=== PATIENT | female | born 1950 | race Caucasian/White ===

== ENCOUNTER 2022-12-31 18:42 | Emergency (ER) | payer MEDICARE, SELFPAY ==
--- NOTE | ~2022-12-31 | XR_ITS ---
EXAM: XR elbow LT min 3V DATE: 12/31/2022 19:10 HISTORY: TRIPPED ON BRANCH 12/31/22. TREE BRANCH HIT ELBOW. POST PAIN. . COMPARISON: None available. FINDINGS: Normal mineralization. No fracture or dislocation. No lytic or blastic lesion. Mild degene rative change in the elbow joint. Lateral epicondylar enthesopathy. No erosion or periosteal change. Visualization of the posterior fat pad. Displacement of the anterior fat pad. Soft tissues otherwise within normal limits. IMPRESSION: Large elbow joint effusion which can accompany occult radial head fractures. Reviewed, dictated and finalized at location K. IMPRESSION: Large elbow joint effusion which can accompany occult radial head f ractures.
[2022-12-31 18:50] VITALS: BP 182/75; PULSE 70; RESP 20; TEMP 36.7; O2SAT 99
[2022-12-31 19:00] VITALS: BP 182/75; PULSE 70; RESP 20; TEMP 36.7; O2SAT 99
--- NOTE | 2022-12-31 19:06 | ED.UPPEXIN ---
HPI - Extremity Injury (Upper) General Chief Complaint: Extremity Injury, Upper Stated Complaint: left elbow and wrist injury History of Present Illness HPI narrative: PATIENT WAS OUT PICKING UP STICKS IN HER YARD AND FELL LANDED ON HER LEFT ELBOW. NO DEFORMITY DENIES ANY OTHER INJURIES. REPORTS LEFT ELBOW STIFFNESS HAS NOT TAKEN ANYTHING OVER TH COUNTER FOR PAIN OR DISCOMFORT Related Data Home Medications Medication Instructions Recorded Confirmed atorvastatin 40 mg tablet mg 12/31/22 carvedilol 6.25 mg tablet mg 12/31/22 lisinopril 20 mg tablet mg 12/31/22 Allergies Allergy/AdvReac Type Severity Reaction Status Date / Time codeine Allergy Rash Verified 12/31/22 18:59 metronidazole [From Flagyl] Allergy Rash Verified 12/31/22 18:59 sulfamethoxazole Allergy Unknown Verified 12/31/22 18:59 [From Bactrim] trimethoprim [From Bactrim] Allergy Unknown Verified 12/31/22 18:59 Review of Systems Review of Systems: CONSTITUTIONAL: DENIES FEVER, CHILLS, OR SWEATS. EYES: DENIES VISUAL CHANGES, REDNESS, OR DISCHARGE. ENT: DENIES RHINORRHEA, CONGESTION, SORE THROAT, OR OTALGIA. CARDIOVASCULAR: DENIES CHEST PAIN, PALPITATIONS, OR EDEMA. RESPIRATORY: DENIES COUGH OR DYSPNEA. GASTROINTESTINAL: DENIES ABDOMINAL PAIN, NAUSEA, VOMITING, OR DIARRHEA. GENITOURINARY: DENIES DYSURIA OR HEMATURIA. SKIN: DENIES RASH OR ITCHING. MUSCULOSKELETAL: DENIES BACK PAIN, JOINT PAIN, OR MYALGIA. NEUROLOGIC: DENIES HEADACHE, NUMBNESS, OR WEAKNESS. PSYCHIATRIC: DENIES ANXIETY OR DEPRESSION. PMFSH Comments AT TIME OF SIGNATURE, AGREE WITH NURSING PAST MEDICAL, SURGICAL, SOCIAL AND FAMILY HISTORY. THERE IS NO RELEVANT FAMILY HISTORY PERTINENT TO THE PRESENTING COMPLAINT Exam Narrative: GENERAL: WELL-APPEARING, WELL-NOURISHED, AND IN NO ACUTE DISTRESS. HEAD: NORMOCEPHALIC, ATRAUMATIC. EYES: PERRLA AND EOMI. ENT: NARES CLEAR, NO RHINORRHEA OR EPISTAXIS. MUCOUS MEMBRANES MOIST. NECK: SUPPLE. CHEST: CLEAR TO AUSCULTATION. NO RESPIRATORY DISTRESS. HEART: REGULAR RATE AND RHYTHM. NO MURMUR HEARD. NORMAL PERIPHERAL PULSES. ABDOMEN: SOFT, NONTENDER, NONDISTENDED, NORMAL ACTIVE BOWEL SOUNDS. EXTREMITIES: NORMAL RANGE OF MOTION. NO EDEMA. ELBOW EXAM PAIN AND SWELLING TO LEFT ELBOW HAND EXAM - SKIN INTACT, NO LACERATION, NO SWELLING, NO ERYTHEMA, NORMAL DIGIT CASCADE WITH FLEXION OF FINGERS, MEDIAN NERVE, ULNAR NERVE, RADIAL NERVE IS INTACT. NORMAL SENSATION OF EACH SIDE OF EACH FINGER, CAN PERFORM `OK? SIGN, `CROSS OVER FINGER TEST OF INDEX AND MIDDLE FINGERS? AND `THUMBS UP? SIGN, NORMAL THUMB OPPOSITION, NO SCISSORING. GOOD CAPILLARY REFILL AND RADIAL PULSE. NORMAL FLEXION AND EXTENSION OF FINGERS AND WRIST. NORMAL SUPINATION AT WRIST. NORMAL FOREARM AND ELBOW EXAM. SKIN: WARM, DRY, NO RASH. NEURO: NO FOCAL DEFICITS. ALERT AND ORIENTED X3. LUIS AMRANDO COMA SCALE EYE OPENING: SPONTANEOUS 4 LUIS ARMANDO COMA SCALE MOTOR: OBEYS COMMANDS 6 LUIS ARMANDO COMA SCALE VERBAL: ORIENTED 5 LUIS ARMANDO COMA SCALE TOTAL 15 Course Course Level of Care: Express Care Visit Vital Signs Vital signs: Vital Signs Temperature 36.7 C 12/31/22 18:50 Pulse Rate 70 12/31/22 18:50 Respiratory Rate 20 12/31/22 18:50 Blood Pressure 182/75 H 12/31/22 18:50 Pulse Oximetry 99 12/31/22 18:50 Oxygen Delivery Room Air 12/31/22 18:50 Temperature 36.7 C 12/31/22 19:00 Pulse Rate 70 12/31/22 19:00 Respiratory Rate 20 12/31/22 19:00 Blood Pressure 182/75 H 12/31/22 19:00 Pulse Oximetry 99 12/31/22 19:00 Oxygen Delivery Room Air 12/31/22 19:00 PLEASE DAYA SCHEDULE A FOLLOWUP VISIT WITH YOUR PERSONAL PHYSICIAN FOR FURTHER EVALUATION AND TREATMENT. INCLUDING RECHECK AND DISCUSSION OF YOUR BLOOD PRESSURE. IF YOUR SYMPTOMS PERSIST, CHANGE OR WORSEN SIGNIFICANTLY BEFORE YOU CAN CONTACT YOUR PERSONAL PHYSICIAN THEN PLEASE, WITHOUT DELAY, GO TO THE EMERGENCY DEPARTMENT FOR FURTHER EVALUATION DISCUSSED X RAY RESULTS AND PATIENT IS AGREEABLE TO FOLL
--- NOTE | 2022-12-31 19:28 | PC.NURSE ---
Ice not applied as no ice available in express care.
== END 2022-12-31 19:45 | disposition home or self-care (01) ==
PROVIDERS: Emergency Provider Nurse Practitioner Family; PCP Family Medicine
DX: S42.402A Unspecified fracture of lower end of left humerus, initial encounter for closed fracture (principal); S50.02XA Contusion of left elbow, initial encounter; W19.XXXA Unspecified fall, initial encounter; E78.00 Pure hypercholesterolemia, unspecified; I10 Essential (primary) hypertension
CPT/HCPCS: 73080; 99214; A4565; G0463